=== PATIENT | female | born 1970 | race Caucasian/White ===

== ENCOUNTER → 2017-05-10 | Outpatient (CLI) | payer OTHER ==
[2016-04-27 14:31] VITALS: BP 166/86
--- NOTE | 2017-05-14 10:12 | MG ---
HISTORY: Screening mammogram, previous done over 10 years ago with no comparison available, history of breast reduction, family history of breast cancer Comparison: None available FINDINGS: CC and MLO projections of the right and left breast were obtained as well as exaggerated MLO views. Heterogeneously dense fibroglandular tissue is present. There is a nodular asymmetric density seen at the 1 to 2 o'clock position of the right breast. No significant architectural distortion, mass or cl ustered microcalcifications can be observed to suggest malignancy. No skin thickening or nipple retr action is appreciated. No pathological lymphadenopathy can be identified. There are scattered benig n calcifications present in both breasts. There are bilateral surgical scars noted. IMPRESSION: Asymmetric nodular density seen at the 1 to 2 o'clock position of the right breast. Furt her evaluation with spot compression views and possibly targeted ultrasound is recommended. ACR CATEGORY 0: Assessment incomplete; additional imaging is needed. * 0 (ZERO) - ASSESSMENT INCOMPLETE; ADDITIONAL IMAGING IS NEEDED. * 1/1 (ONE) - NEGATIVE. * 2/II (TWO) - BENIGN FINDINGS. * 3/III (THREE) - PROBABLY BENIGN FINDING; SHORT INTERVAL FOLLOW-UP SUGGESTED. * 4/IV (FOUR) - SUSPICIOUS ABNORMALITY; BIOPSY SHOULD BE CONSIDERED. * 5/V - HIGHLY SUSPICIOUS OF MALIGNANCY; BIOPSY SHOULD BE PERFORMED. A NEGATIVE X-RAY REPORT SHOULD NOT DELAY BIOPSY IF A DOMINANT OR CLINICALLY SUSPICIOUS MASS IS PRESENT; 4 TO 8 PERCENT OF CANCERS ARE NOT IDENTIFIED BY X-RAY. A NEGA TIVE REPORT MAY REINFORCE THE CLINICAL IMPRESSION. ADENOSIS AND DENSE BREASTS MAY OBSCURE AN UNDERLY ING NEOPLASM. Reported By:
== END | disposition home or self-care (01) ==
LOC: RAD 11:32
PROVIDERS: ATTEND Specialist
DX: Z12.31 Encounter for screening mammogram for malignant neoplasm of breast (principal); N63.10 Unspecified lump in the right breast, unspecified quadrant
CPT/HCPCS: 77067

== ENCOUNTER → 2017-05-29 | Outpatient (CLI) | payer OTHER ==
[2016-04-27 14:31] VITALS: BP 166/86
--- NOTE | 2017-05-29 16:23 | US ---
HISTORY: Abnormal baseline screening mammography with right breast focal asymmetry Right breast digital diagnostic mammography with CAD and right breast ultrasound. Comparison: May 10, 2017 FINDINGS: Mammogram: Spot compression and mL views of the right breast were obtained. Heterogeneously dense fi broglandular tissue is seen to be present with persistent focal asymmetry in the upper medial subareo lar breast. A calcified oil cyst is noted more posteriorly. No skin thickening or nipple retraction is appreciated. No pathological lymphadenopathy can be identified. Benign-appearing calcifications are noted. Ultrasound: Multiple grayscale and color Doppler images of the subareolar right breast were obtained. There are dense fibrocystic changes and ductal ectasia noted at 9 o'clock approximately 1 cm from th e nipple. At 6 o'clock approximately 2 cm from the nipple, there is a horizontally oriented macro lob ulated but smoothly marginated and well circumscribed 5 mm hypoechoic nodule with posterior acoustica l enhancement and no internal Doppler flow favored to represent a complex cyst with internal debris. Dense fibrocystic changes are noted throughout. No definite suspicious cystic or solid nodule is seen to correspond to the mammographic findings. IMPRESSION: Probably benign right breast focal asymmetry corresponding to fibrocystic change for whi ch six-month follow-up is recommended to document stability and establish a baseline. ACR CATEGORY 3 - probably benign findings; short interval follow-up suggested. Diagnostic CAD was utilized and reviewed. * 0 (ZERO) - ASSESSMENT INCOMPLETE; ADDITIONAL IMAGING IS NEEDED. * 1/1 (ONE) - NEGATIVE. * 2/II (TWO) - BENIGN FINDINGS. * 3/III (THREE) - PROBABLY BENIGN FINDING; SHORT INTERVAL FOLLOW-UP SUGGESTED. * 4/IV (FOUR) - SUSPICIOUS ABNORMALITY; BIOPSY SHOULD BE CONSIDERED. * 5/V - HIGHLY SUSPICIOUS OF MALIGNANCY; BIOPSY SHOULD BE PERFORMED. A NEGATIVE X-RAY REPORT SHOULD NOT DELAY BIOPSY IF A DOMINANT OR CLINICALLY SUSPICIOUS MASS IS PRESENT; 4 TO 8 PERCENT OF CANCERS ARE NOT IDENTIFIED BY X-RAY. A NEGA TIVE REPORT MAY REINFORCE THE CLINICAL IMPRESSION. ADENOSIS AND DENSE BREASTS MAY OBSCURE AN UNDERLY ING NEOPLASM. Reported By:
== END ==
LOC: RAD 12:58
PROVIDERS: ATTEND Specialist
DX: R92.8 Other abnormal and inconclusive findings on diagnostic imaging of breast (principal)
CPT/HCPCS: 76642; 77065

== ENCOUNTER 2017-10-07 11:10 | Emergency (ER) | payer OTHER ==
[2017-10-07 11:22] VITALS: BP 157/86; BMI 30.4
[2017-10-07] MEDS ORDERED: TORADOL 60 MG VIAL IM ONE (11:53)
[2017-10-07] MEDS ORDERED: ZOFRAN INJ 4 MG VIAL IM ONE (11:53)
--- NOTE | 2017-10-07 11:54 | DR.GENAD ---
HPI - PCP Primary Care Physician: LAM - Complaint/Symptoms Chief Complaint:: PT STATES SHE FELL DOWN 3 STEPS YESTERDAY AND HIT HER HEAD. PT STATES SHE IS IN A LOT OF PAIN TODAY. - Nurses notes reviewed Nurses Notes Review: Yes - Source History Provided: Patient - Mode of Arrival Mode of Arrival: Wheelchair - Timing Onset of Chief Complaint: 10/06/17 PMH - PMH Past Medical History: Yes Past Medical History: Hypertension Past Surgical History: Yes Surgical History: Hysterectomy - Family History History of Family Medical Conditions: No - Social History Does patient currently use any type of tobacco product: No Have you used tobacco products in the last 12 months: No Type of Tobacco Use: None Does any household member use tobacco: No Alcohol Use: None Do you use any recreational Drugs:: No Lives With: Spouse Lives Where: Home - infectious screening In the last 2 months have you had wt loss of >10#?: NO Have you had fever, night sweats or hemotysis?: No Have you traveled outside the country in the last 6 months?: No Isolation: Standard PE - Vital Signs Vitals: Temperature 98.2 F Pulse Rate 86 Respiratory Rate 20 Blood Pressure [Right Arm] 166/86 Blood Pressure 157/86 O2 Sat by Pulse Oximetry 99 ROR - Labs Reviewed Result Diagrams: 10/07/17 13:12 10/07/17 13:12 Laboratory: WBC 11.0 X10^3/uL (3.6-10.0) H 10/07/17 13:12 RBC 4.29 X10^6/uL (3.5-5.4) 10/07/17 13:12 Hgb 13.0 g/dL (12.0-16.0) 10/07/17 13:12 Hct 38.2 % (36.0-47.0) 10/07/17 13:12 MCV 89.0 fL (80.0-100.0) 10/07/17 13:12 MCH 30.3 pg (27.0-34.0) 10/07/17 13:12 MCHC 34.0 g/dL (33.0-35.0) 10/07/17 13:12 RDW 14.4 % (11.6-16.5) 10/07/17 13:12 Plt Count 461 X10^3/uL (150.0-450.0) H 10/07/17 13:12 MPV 7.0 fL (7.4-11.0) L 10/07/17 13:12 Neut % (Auto) 75.6 % (42.0-75.0) H 10/07/17 13:12 Lymph % (Auto) 16.5 % (21.0-51.0) L 10/07/17 13:12 [place] % (Auto) 7.4 % (0.0-13.0) 10/07/17 13:12 Eos % (Auto) 0.2 % (0.9-2.9) L 10/07/17 13:12 Baso % (Auto) 0.3 % (0.2-1.0) 10/07/17 13:12 Neut # (Auto) 8.3 x10^3/uL (2.2-4.8) H 10/07/17 13:12 Lymph # (Auto) 1.8 X10^3/uL (1.3-2.9) 10/07/17 13:12 [place] # (Auto) 0.8 x10^3/uL (0.3-0.8) 10/07/17 13:12 Eos # (Auto) 0.0 x10^3/uL (0.0-0.2) 10/07/17 13:12 Baso # (Auto) 0.0 X10^3/uL (0.0-0.1) 10/07/17 13:12 Absolute Nucleated RBC 0.0 /100WBC 10/07/17 13:12 Sodium 142 mmol/L (136-145) 10/07/17 13:12 Corrected Sodium 143 mmol/L (136-145) 10/07/17 13:12 Potassium 4.6 mmol/L (3.5-5.1) 10/07/17 13:12 Chloride 104 mmol/L (98-107) 10/07/17 13:12 Carbon Dioxide 28.6 mmol/L (21-32) 10/07/17 13:12 BUN 27 mg/dL (7-18) H 10/07/17 13:12 Creatinine 1.35 mg/dL (0.55-1.02) H 10/07/17 13:12 Est GFR (MDRD) Af Amer 54 (>60) L 10/07/17 13:12 Est GFR (MDRD) Non-Af 44 (>60) L 10/07/17 13:12 Glucose 134 mg/dL (65-99) H 10/07/17 13:12 Calcium 8.8 mg/dL (8.5-10.1) 10/07/17 13:12 Corrected Calcium TNP 10/07/17 13:12 Total Bilirubin 0.20 mg/dL (0.2-1.0) 10/07/17 13:12 AST 17 Units/L (15-37) 10/07/17 13:12 ALT 28 Units/L (12-78) 10/07/17 13:12 Alkaline Phosphatase 97 Units/L (46-116) 10/07/17 13:12 Total Protein 7.9 g/dL (6.4-8.2) 10/07/17 13:12 Albumin 4.1 g/dL (3.4-5.0) 10/07/17 13:12 Globulin 3.8 g/dL (2.5-4.5) 10/07/17 13:12 Albumin/Globulin Ratio 1.1 Ratio (1.1-2.1) 10/07/17 13:12 - Diagnosis Discharge Problem: Back pain Qualifiers: Back pain location: low back pain Chronicity: acute Back pain laterality: bilateral Sciatica presence: without sciatica Qualified Code(s): M54.5 - Low back pain Cervical sprain Qualifiers: Encounter type: initial encounter Qualified Code(s): S13.9XXA - Sprain of joints and ligaments of unspecified parts of neck, initial encounter Back strain Qualifiers: Encounter type: initial encounter Qualified Code(s): S39.012A - Strain of muscle, fascia and tendon of lower back, initial encounter Headache Qualifiers: Headache type: unspecified Headache chronicity pattern: acute headache Intractability: intractable Qualified Code(s): R51 - Headache - Discharge Plan Condition: Stable Prescriptions: Ibuprofen [MOTRIN TAB 800 MG *] 800 mg PO Q8H PRN #20 tab PRN Reason: Pain/Inflammation Ondansetron [Zofran ODT 8 mg] 8 mg PO Q8H PRN #12 tab PRN Reason: Nausea/Vomiting - Follow ups/Referrals Follow ups/Referrals: Maximo Lorenz [Primary Care Provider] - 03/19/18 - Instructions Instructions: Lumbosacral Strain, Mid-Back Strain, Cervical Strain and Sprain Rehab-SportsMed Additional Instructions: RETURN TO ED IF WORSE.
[2017-10-07] MEDS ORDERED: ZOFRAN INJ 4 MG VIAL ONE (11:59)
[2017-10-07] MEDS ORDERED: TORADOL 60 MG VIAL ONE (11:59)
--- NOTE | 2017-10-07 13:03 | RAD ---
Examination: Right knee, three views History: Fell Findings: No definite fracture, dislocation or synovial effusion. There is slight narrowing of the me dial compartment. Impression: Medial compartment degenerative change. No acute injury identified. Reported By:
--- NOTE | 2017-10-07 13:03 | CT ---
CT brain without contrast Indication: Fall with head trauma Comparison: None available Technique: Multiple axial images of the brain were obtained from the skull base to the vertex without administra tion of IV contrast. Findings: No acute intraparenchymal hemorrhage or mass can be identified. No extra-axial fluid collections are seen. No alteration in the attenuation of the brain parenchyma can be identified to suggest acute o r subacute ischemic change. The ventricular system is symmetric and nondilated. The extracranial st ructures are grossly unremarkable. IMPRESSION: 1. No acute intracranial process is identified. Reported By:
--- NOTE | 2017-10-07 13:04 | RAD ---
Examination: Thoracic spine, AP and lateral views History: Fell Findings: There is no evidence for thoracic spine fracture or dislocation. Slight disc narrowing and small marginal osteophytes at several levels. The paraspinal soft tissues are normal. Impression: Mild thoracic spondylosis. No fracture demonstrated. Reported By:
--- NOTE | 2017-10-07 13:06 | RAD ---
Examination: Cervical spine History: Recent fall Findings: Normal alignment of C1-C6. The inferior portion of C6, C7 and T1 are not demonstrated on la teral views. There is degenerative change at C5-6-7. No obvious fracture or vertebral displacement. T he odontoid process is intact. Degenerative osteophytes impinge slightly on lower neural foramina alka aterally. Impression: Degenerative disc disease, spondylosis and lower cervical uncovertebral joint osteoarthri tis. There is mild degenerative narrowing of lower neural foramina. The cervicothoracic junction is n ot evaluated on available lateral images. Reported By:
--- NOTE | 2017-10-07 13:15 | RAD ---
Five views of the lumbar spine. Indication: Back pain after fall Findings: No acute fracture within the lumbar spine. There is multilevel spondylosis throughout the l umbar spine with a minimal anterolisthesis of L4. There is moderate facet arthropathy at L4-5 and L5- S1. No spondylolysis identified. Calcified atherosclerotic disease of the abdominal aorta is noted. S I joints are intact. Impression: 1.Multilevel spondylosis with a minimal anterolisthesis of L4 secondary to moderate L4-5 and L5-S1 fa cet arthropathy. No acute fracture. 2. Moderate calcified atheromatous disease of the abdominal aorta. Reported By:
[2017-10-07 13:20] LABS: BASOPHILS % (AUTO) 0.3 % (0.2-1.0); EOSINOPHILS % (AUTO) 0.2 % (0.9-2.9); HEMATOCRIT 38.2 % (36.0-47.0); LYMPHOCYTES # (AUTO) 1.8 X10^3/uL (1.3-2.9); LYMPHOCYTES % (AUTO) 16.5 % (21.0-51.0); MEAN CORPUSCULAR HEMOGLOBIN 30.3 pg (27.0-34.0); MONOCYTES # (AUTO) 0.8 x10^3/uL (0.3-0.8); MONOCYTES % (AUTO) 7.4 % (0.0-13.0); NEUTROPHILS # (AUTO) 8.3 x10^3/uL (2.2-4.8); NEUTROPHILS % (AUTO) 75.6 % (42.0-75.0); PLATELET COUNT 461 X10^3/uL (150.0-450.0); RED BLOOD COUNT 4.29 X10^6/uL (3.5-5.4); RED CELL DISTRIBUTION WIDTH 14.4 % (11.6-16.5)
[2017-10-07 13:29] LABS: ALANINE AMINOTRANSFERASE 28 Units/L (12-78); ALBUMIN 4.1 g/dL (3.4-5.0); ALKALINE PHOSPHATASE 97 Units/L (46-116); ASPARTATE AMINO TRANSFERASE 17 Units/L (15-37); BLOOD UREA NITROGEN 27 mg/dL (7-18); CALCIUM 8.8 mg/dL (8.5-10.1); CARBON DIOXIDE 28.6 mmol/L (21-32); CHLORIDE 104 mmol/L (98-107); COR NA(FOR HYPERGLY) 143 mmol/L (136-145); CREATININE 1.35 mg/dL (0.55-1.02); SODIUM 142 mmol/L (136-145); TOTAL PROTEIN 7.9 g/dL (6.4-8.2); eGFR BLACK RACES 54 (>60); eGFR NON BLACK RACES 44 (>60)
[2017-10-07] MEDS ORDERED: PHENERGAN INJ 25 MG ONE (13:37)
[2017-10-07] MEDS ORDERED: BACITRACIN ZINC ONE (13:59)
== END 2017-10-07 15:15 | disposition home or self-care (01) ==
LOC: ER 11:14
DX: S39.012S Strain of muscle, fascia and tendon of lower back, sequela (principal); S13.9XXA Sprain of joints and ligaments of unspecified parts of neck, initial encounter; M54.5 Low back pain; R51 Headache; W10.9XXA Fall (on) (from) unspecified stairs and steps, initial encounter; Y92.9 Unspecified place or not applicable
CPT/HCPCS: 36415; 70450; 72050; 72072; 72110; 73564; 80053; 85025; 96372; 99282; 99283; J1885; J2405; J2550

== ENCOUNTER 2018-01-17 18:55 | Inpatient (IN) ==
[2018-01-17] MEDS ORDERED: NS 1000 ML 1,000 ML ONE ×4 (20:14→23:31)
--- NOTE | 2018-01-17 20:15 | DR.GENAD ---
HPI - PCP Primary Care Physician: LAM - HPI Comment HPI Comment: FELL, SYNCOPAL EPISODE YESTERDAY. TONIGHT TOOK 1/2 THE DOSE OF BP MED AND WAS ABOUT TO EAT WHEN NOTICE AMS. SHE WAS PALE AND BP WAS LOW. STILL BP LOW IN ED. - Complaint/Symptoms Chief Complaint Doctors Comments: HYPOTENSION, DIZZINESS, NEAR SYNCOPAL EPISODE. Chief Complaint:: TOOK BP MEDS PRIOR TO SUPPER. SAT DOWN EATING SUPPER AND BECAME INCOHERENT PER . BP WAS LOW 70/50 THE NEXT TIME BP WOULD NOT REGISTER ON MACHINE. SYNCOPE EPISODE YESTERDAY, HURTING ALL OVER FROM THE FALL. LOW BLOOD PRESSURE. Self Treatment fo Chief Complaint: LISINOPRIL 10MG WITH HCTZ 12.5MG AM AND LISINOPRIL 10MG PO AT HS. OF TODAY- ALL CUT IN HALF - Nurses notes reviewed Nurses Notes Review: Yes - Source History Provided: Patient, [employer] - Mode of Arrival Mode of Arrival: Ambulatory - Timing Onset of Chief Complaint: 01/17/18 Came on: Suddenly - Duration Duration: Minutes - Severity Severity: Moderate PMH - PMH Past Medical History: Yes Past Medical History: Hypertension Past Surgical History: Yes Surgical History: Hysterectomy - Family History History of Family Medical Conditions: No - Social History Does patient currently use any type of tobacco product: No Have you used tobacco products in the last 12 months: No Type of Tobacco Use: None Alcohol Use: None Do you use any recreational Drugs:: No Lives With: Spouse Lives Where: Home - infectious screening Have you traveled outside the country in the last 6 months?: No Isolation: Standard ROS - Review of Systems Constitutional: Weakness, Fatigue. negative: Chills, Fever Eyes: No Symptoms Reported. negative: Eye Pain, Discharge ENTM: negative: Ear Pain, Nose Discharge, Nose Congestion, Throat Pain Respiratoy: Short of Breath. negative: Productive Cough, Non-Productive Cough, Wheezing, Hemoptysis Cardiovascular: Syncope Gastrointestinal/Abdominal: No Symptoms Reported Genitourinary: No Symptoms Reported Neurological: No Symptoms Reported Musculoskeletal: No Symptoms Reported Integumentary: No Symptoms Reported Hematologic/Lymphatic: No Symptoms Reported Endocrine: No Symptoms Reported All Other Systems: Reviewed and Negative PE - General Limitations: No Limitations General Appearance: Alert - Head Head Exam: Normal Inspection - Eyes Eye exam: Normal Appearance - ENT ENT Exam: Normal External Ear Exam External Ear Exam: Normal External Inspection TM/Canal Exam: Bilateral Normal Nose Exam: Normal Nose Exam Mouth Exam: Normal Inspection Throat Exam: Normal Inspection - Neck Neck Exam: Trachea Midline - Chest Chest Inspection: Symmetric Chest Wall Rise - Respiratory Respiratory Exam: Normal Lung Sounds Bilat Respiratory Exam: Bilateral Clear to Auscultation - Cardiovascular Cardiovascular Exam: Regular Rate, Normal Rhythm, Normal Heart Sounds - Abdominal Exam Abdominal Exam: Normal Bowel Sounds, Soft. negative: Tenderness - Extremities Extremities Exam: Normal Inspection - Back Back Exam: Normal Inspection - Neurologic Neurological Exam: Alert, Oriented X3. negative: CN II-XII Intact - Psychiatric Psychiatric Exam: Normal Affect, Normal Mood - Skin Skin Exam: Normal Color - Vital Signs Vitals: Temperature 97.6 F Pulse Rate [Apical] 67 Pulse Rate 86 Respiratory Rate 14 Blood Pressure [Left Arm] 67/44 Blood Pressure [Right Arm] 166/86 Blood Pressure 80/42 O2 Sat by Pulse Oximetry 98 MDM - Additional Information Additional Information Obtained From: Family Findings: HYPOTENSION, AMS, UTI, [place], SEPSIS Course - Treatment Treatment: SEE ORDER. - Consultation Consultation Comments: DISCUSS PATIENT WITH DR. WELLS, HE WILL ADMIT PATIENT. - Education/Counseling Education/Counseling: Patient, Family, Education Educated On: Diagnosis, Needs for Follow Up ROR - Labs Reviewed Result Diagrams: 01/19/18 05:16 01/19/18 05:16 - Labs Reviewed Laboratory: WBC 10.4 X10^3/uL (3.6-10.0) H 01/17/18 20: RBC 3.98 X10^6/uL (3.5-5.4) 01/17/18 20:29 Hgb 12.2 g/dL (12.0-16.0) 01/17/18 20: Hct 36.3 % (36.0-47.0) 01/17/18 20: MCV 91.0 fL (80.0-100.0) 01/17/18 20: MCH 30.7 pg (27.0-34.0) 01/17/18 20: MCHC 33.7 g/dL (33.0-35.0) 01/17/18 20: RDW 13.9 % (11.6-16.5) 01/17/18 20:29 Plt Count 360 X10^3/uL (150.0-450.0) 01/17/18 20: MPV 6.9 fL (7.4-11.0) L 01/17/18 20: Neut % (Auto) 49.4 % (42.0-75.0) 01/17/18 20: Lymph % (Auto) 39.6 % (21.0-51.0) 01/17/18 20: [place] % (Auto) 7.6 % (0.0-13.0) 01/17/18 20: Eos % (Auto) 2.8 % (0.9-2.9) 01/17/18 20: Baso % (Auto) 0.6 % (0.2-1.0) 01/17/18 20: Neut # (Auto) 5.1 x10^3/uL (2.2-4.8) H 01/17/18 20: Lymph # (Auto) 4.1 X10^3/uL (1.3-2.9) H 01/17/18 20:29 [place] # (Auto) 0.8 x10^3/uL (0.3-0.8) 01/17/18 20: Eos # (Auto) 0.3 x10^3/uL (0.0-0.2) H 01/17/18 20: Baso # (Auto) 0.1 X10^3/uL (0.0-0.1) 01/17/18 20: Absolute Nucleated RBC 0.0 /100WBC 01/17/18 20: INR Target Range - 01/17/18 20: INR 1.02 (0.8-1.3) 01/17/18 20:29 APTT 28.1 SECONDS (22.9-36.5) 01/17/18 20: PTT Comment - 01/17/18 20:29 Sodium 137 mmol/L (136-145) 01/17/18 20: Corrected Sodium 138 mmol/L (136-145) 01/17/18 20:29 Potassium 4.6 mmol/L (3.5-5.1) 01/17/18 20: Chloride 102 mmol/L (98-107) 01/17/18 20:29 Carbon Dioxide 22.6 mmol/L (21-32) 01/17/18 20:29 BUN 31 mg/dL (7-18) H 01/17/18 20:29 Creatinine 2.15 mg/dL (0.55-1.02) H 01/17/18 20:29 Est GFR (MDRD) Af Amer 31 (>60) L 01/17/18 20:29 Est GFR (MDRD) Non-Af 26 (>60) L 01/17/18 20:29 Glucose 160 mg/dL (65-99) H 01/17/18 20:29 Lactic Acid 2.4 mmol/L (0.4-2.0) H 01/17/18 20:29 Calcium 8.8 mg/dL (8.5-10.1) 01/17/18 20: Corrected Calcium TNP 01/17/18 20: Magnesium 1.8 mg/dL (1.7-2.9) 01/17/18 20: Total Bilirubin 0.30 mg/dL (0.2-1.0) 01/17/18 20:29 AST 10 Units/L (15-37) L 01/17/18 20:29 ALT 21 Units/L (12-78) 01/17/18 20:29 Alkaline Phosphatase 54 Units/L (46-116) 01/17/18 20:29 Creatine Kinase 32 Units/L (26-192) 01/17/18 20:29 CK-MB (CK-2) < 1.0 ng/mL (0-4.0) 01/17/18 20: CK/CKMB % Calc 3.1 % (<4) 01/17/18 20:29 Troponin I < 0.02 ng/mL (0-1.5) 01/17/18 20:29 Total Protein 6.6 g/dL (6.4-8.2) 01/17/18 20: Albumin 3.7 g/dL (3.4-5.0) 01/17/18 20: Globulin 2.9 g/dL (2.5-4.5) 01/17/18 20:29 Albumin/Globulin Ratio 1.3 Ratio (1.1-2.1) 01/17/18 20:29 - Diagnosis Discharge Problem: Dehydration Hypotension Qualifiers: Hypotension type: unspecified hypotension type Qualified Code(s): I95.9 - Hypotension, unspecified Altered mental status Qualifiers: Altered mental status type: transient alteration of awareness Qualified Code(s) : R40.4 - Transient alteration of awareness Syncopal episodes Qualifiers: Syncope type: unspecified Qualified Code(s): R55 - Syncope and collapse - Discharge Plan Disposition: 09 ADMITTED INPATIENT Condition: Stable
[2018-01-17] MEDS ORDERED: NS 1000 ML 1,000 ML IV ONE ×3 (20:16→23:00)
[2018-01-17 20:43] LABS: BASOPHILS # (AUTO) 0.1 X10^3/uL (0.0-0.1); BASOPHILS % (AUTO) 0.6 % (0.2-1.0); EOSINOPHILS # (AUTO) 0.3 x10^3/uL (0.0-0.2); EOSINOPHILS % (AUTO) 2.8 % (0.9-2.9); HEMATOCRIT 36.3 % (36.0-47.0); HEMOGLOBIN 12.2 g/dL (12.0-16.0); LYMPHOCYTES # (AUTO) 4.1 X10^3/uL (1.3-2.9); LYMPHOCYTES % (AUTO) 39.6 % (21.0-51.0); MEAN CORPUSCULAR HEMOGLOBIN 30.7 pg (27.0-34.0); MEAN CORPUSCULAR HGB CONC 33.7 g/dL (33.0-35.0); MEAN PLATELET VOLUME 6.9 fL (7.4-11.0); MONOCYTES # (AUTO) 0.8 x10^3/uL (0.3-0.8); MONOCYTES % (AUTO) 7.6 % (0.0-13.0); NEUTROPHILS # (AUTO) 5.1 x10^3/uL (2.2-4.8); NEUTROPHILS % (AUTO) 49.4 % (42.0-75.0); PLATELET COUNT 360 X10^3/uL (150.0-450.0); RED BLOOD COUNT 3.98 X10^6/uL (3.5-5.4); RED CELL DISTRIBUTION WIDTH 13.9 % (11.6-16.5); WHITE BLOOD COUNT 10.4 X10^3/uL (3.6-10.0)
[2018-01-17 20:53] LABS: LACTIC ACID 2.4 mmol/L (0.4-2.0)
[2018-01-17 20:55] LABS: BLOOD UREA NITROGEN 31 mg/dL (7-18); CALCIUM 8.8 mg/dL (8.5-10.1); CARBON DIOXIDE 22.6 mmol/L (21-32); CHLORIDE 102 mmol/L (98-107); COR NA(FOR HYPERGLY) 138 mmol/L (136-145); CREATININE 2.15 mg/dL (0.55-1.02); SODIUM 137 mmol/L (136-145); TROPONIN I < 0.02 ng/mL (0-1.5); eGFR NON BLACK RACES 26 (>60)
--- NOTE | 2018-01-17 20:58 | CT ---
CT head without contrast Indication: Hypotension, altered mental status Comparison: 10/07/2017 Technique: CT images of the head were obtained without contrast. Automatic exposure control was utili BFKW. Findings: The ventricles are symmetric and nondilated. No acute bleed, mass effect, or abnormal extra -axial collection. No acute skeletal abnormality. The visualized paranasal sinuses and mastoid air ce lls are clear. Impression: No acute intracranial abnormality. Reported By:
--- NOTE | 2018-01-17 20:59 | RAD ---
STUDY: CHEST, ONE VIEW History: Low blood pressure. Comparison: None. Findings: The trachea is midline. The lungs are clear of consolidation, significant infiltrate, effusion, or pn eumothorax. The cardiac silhouette, mediastinum and osseous structures are unremarkable. IMPRESSION: 1. No evidence of acute cardiopulmonary abnormality. Reported By:
[2018-01-17 21:18] LABS: ALANINE AMINOTRANSFERASE 21 Units/L (12-78); ALBUMIN 3.7 g/dL (3.4-5.0); ALKALINE PHOSPHATASE 54 Units/L (46-116); ASPARTATE AMINO TRANSFERASE 10 Units/L (15-37); CKMB % 3.1 % (<4); CREATINE KINASE 32 Units/L (26-192); CREATINE KINASE MB < 1.0 ng/mL (0-4.0); MAGNESIUM 1.8 mg/dL (1.7-2.9); TOTAL PROTEIN 6.6 g/dL (6.4-8.2)
[2018-01-17] MEDS ORDERED: DOPAMINE IV PREMIX 400 MG/250 ML 400 MG/250 ML BAG IV ONE ×2 (21:57→22:06)
[2018-01-17] MEDS ORDERED: MAXIPIME VIAL 1 GRAM 1 G in NS 50 ML IV 50 ML IV ONE (22:01)
[2018-01-17 22:36] LABS: SERUM ACETONE NEGATIVE (NEGATIVE)
[2018-01-17 22:39] LABS: LACTIC ACID 1.5 mmol/L (0.4-2.0)
[2018-01-17] MEDS ORDERED: NS 100 ML IV + SPIKE MINIBAG* 100 ML IV ONE (23:31)
[2018-01-17 23:43] LABS: BILIRUBIN,URINE NEGATIVE (NEGATIVE); BLOOD/HEMOGLOBIN,URINE NEGATIVE (NEGATIVE); GLUCOSE, URINE NEGATIVE (NEGATIVE); KETONES,URINE NEGATIVE (NEGATIVE); LEUKOCYTE ESTERASE ,URINE NEGATIVE (NEGATIVE); NITRITES,URINE NEGATIVE (NEGATIVE); PROTEIN,URINE NEGATIVE (NEGATIVE); UROBILINOGEN,URINE NORMAL (NORMAL)
[2018-01-17] MEDS: NS 1000 ML 1,000 ML IV SCH (23:45)
[2018-01-17 23:53] LABS: APPEARANCE,URINE CLEAR (CLEAR); COLOR,URINE YELLOW (YELLOW)
[2018-01-18 00:44] VITALS: BMI 38.9
[2018-01-18] MEDS ORDERED: ZOFRAN TAB 4 MG SL PRN (00:59)
[2018-01-18] MEDS: ULTRAM PO PRN ×2 (01:11→10:04)
[2018-01-18] MEDS: NORCO 5/325 MG TAB PO PRN ×2 (05:05→20:09)
[2018-01-18 06:30] LABS: BASOPHILS # (AUTO) 0.1 X10^3/uL (0.0-0.1); BASOPHILS % (AUTO) 0.6 % (0.2-1.0); EOSINOPHILS # (AUTO) 0.3 x10^3/uL (0.0-0.2); EOSINOPHILS % (AUTO) 2.8 % (0.9-2.9); HEMATOCRIT 33.9 % (36.0-47.0); HEMOGLOBIN 11.4 g/dL (12.0-16.0); LYMPHOCYTES # (AUTO) 3.4 X10^3/uL (1.3-2.9); MEAN CORPUSCULAR HEMOGLOBIN 30.3 pg (27.0-34.0); MEAN CORPUSCULAR HGB CONC 33.5 g/dL (33.0-35.0); MEAN CORPUSCULAR VOLUME 90.3 fL (80.0-100.0); MEAN PLATELET VOLUME 6.6 fL (7.4-11.0); MONOCYTES # (AUTO) 1.3 x10^3/uL (0.3-0.8); MONOCYTES % (AUTO) 10.5 % (0.0-13.0); NEUTROPHILS # (AUTO) 7.1 x10^3/uL (2.2-4.8); NEUTROPHILS % (AUTO) 58.1 % (42.0-75.0); PLATELET COUNT 359 X10^3/uL (150.0-450.0); RED BLOOD COUNT 3.76 X10^6/uL (3.5-5.4); RED CELL DISTRIBUTION WIDTH 13.7 % (11.6-16.5); WHITE BLOOD COUNT 12.3 X10^3/uL (3.6-10.0)
[2018-01-18 07:00] LABS: ALBUMIN 3.2 g/dL (3.4-5.0); CALCIUM 7.9 mg/dL (8.5-10.1); CARBON DIOXIDE 22.5 mmol/L (21-32); COR CA(FOR HYPOALB) 8.5 mg/dL (8.5-10.1); CREATININE 1.66 mg/dL (0.55-1.02); MAGNESIUM 1.7 mg/dL (1.7-2.9); TOTAL PROTEIN 5.9 g/dL (6.4-8.2)
[2018-01-18 07:24] LABS: CREATINE KINASE 33 Units/L (26-192); CREATINE KINASE MB < 1.0 ng/mL (0-4.0); TROPONIN I < 0.02 ng/mL (0-1.5)
[2018-01-18] MEDS: NS 1000 ML 1,000 ML IV SCH ×3 (07:50→18:11)
[2018-01-18] MEDS ORDERED: MAXIPIME VIAL 1 GRAM IV SCH (09:00)
[2018-01-18 12:00] LABS: CREATINE KINASE 35 Units/L (26-192); CREATINE KINASE MB < 1.0 ng/mL (0-4.0); TROPONIN I < 0.02 ng/mL (0-1.5)
[2018-01-18 12:10] LABS: CKMB % 2.9 % (<4)
--- NOTE | 2018-01-18 12:50 | US ---
History: Hypotension and dehydration Study: Ultrasound of the kidneys Comparison: None Findings: The right kidney measures 10.05 x 6.85 by 6.46 cm with cortical thickness of 1.72 cm. The l eft kidney measures 10.79 x 6.28 x 8.07 cm with cortical thickness of 1.83 cm. There is normal renal echogenicity. There is no mass or hydronephrosis. There is no free fluid. The u rinary bladder is decompressed by a catheter. Impression: Negative Reported By:
[2018-01-18] MEDS ORDERED: MAXIPIME IV SCH (21:00)
[2018-01-19 06:03] LABS: BASOPHILS # (AUTO) 0.1 X10^3/uL (0.0-0.1); BASOPHILS % (AUTO) 0.7 % (0.2-1.0); EOSINOPHILS # (AUTO) 0.3 x10^3/uL (0.0-0.2); HEMATOCRIT 34.7 % (36.0-47.0); HEMOGLOBIN 11.6 g/dL (12.0-16.0); LYMPHOCYTES # (AUTO) 3.3 X10^3/uL (1.3-2.9); LYMPHOCYTES % (AUTO) 41.4 % (21.0-51.0); MEAN CORPUSCULAR HEMOGLOBIN 30.2 pg (27.0-34.0); MEAN CORPUSCULAR HGB CONC 33.5 g/dL (33.0-35.0); MEAN CORPUSCULAR VOLUME 90.3 fL (80.0-100.0); MEAN PLATELET VOLUME 6.7 fL (7.4-11.0); MONOCYTES # (AUTO) 0.8 x10^3/uL (0.3-0.8); MONOCYTES % (AUTO) 9.6 % (0.0-13.0); NEUTROPHILS # (AUTO) 3.5 x10^3/uL (2.2-4.8); NEUTROPHILS % (AUTO) 44.3 % (42.0-75.0); PLATELET COUNT 351 X10^3/uL (150.0-450.0); RED BLOOD COUNT 3.84 X10^6/uL (3.5-5.4); RED CELL DISTRIBUTION WIDTH 13.6 % (11.6-16.5); WHITE BLOOD COUNT 7.9 X10^3/uL (3.6-10.0)
[2018-01-19 06:21] LABS: ALBUMIN 2.9 g/dL (3.4-5.0); ALKALINE PHOSPHATASE 50 Units/L (46-116); ASPARTATE AMINO TRANSFERASE 10 Units/L (15-37); BLOOD UREA NITROGEN 21 mg/dL (7-18); CALCIUM 8.4 mg/dL (8.5-10.1); CARBON DIOXIDE 23.6 mmol/L (21-32); CHLORIDE 112 mmol/L (98-107); COR CA(FOR HYPOALB) 9.3 mg/dL (8.5-10.1); CREATININE 1.07 mg/dL (0.55-1.02); SODIUM 144 mmol/L (136-145); TOTAL PROTEIN 5.9 g/dL (6.4-8.2); eGFR NON BLACK RACES 58 (>60)
[2018-01-19 07:02] LABS: ALANINE AMINOTRANSFERASE 18 Units/L (12-78)
[2018-01-19 08:02] VITALS: BP 161/75
[2018-01-19] MEDS: NS 1000 ML 1,000 ML IV SCH (08:24)
[2018-01-19] MEDS ORDERED: ZANAFLEX PO SCH (09:00)
[2018-01-19] MEDS ORDERED: HYDROCHLOROTHIAZIDE 25 MG TAB PO SCH (09:00)
[2018-01-19] MEDS ORDERED: PriLOSEC PO SCH (09:00)
[2018-01-19] MEDS ORDERED: SINGULAIR TAB 10 MG PO SCH (09:00)
[2018-01-19] MEDS ORDERED: ASPIRIN PO SCH (09:00)
[2018-01-19] MEDS ORDERED: ZESTRIL TAB 10 MG PO SCH (09:00)
[2018-01-19] MEDS ORDERED: SYNTHROID 25 mcg TAB PO SCH (21:00)
[2018-01-19] MEDS ORDERED: CYMBALTA PO SCH (21:00)
--- NOTE | 2018-01-20 12:01 | DR.H&P ---
H&P - History & Physical for Day of: H&P Date: 01/17/18 - Chief Complaint Chief Complaint: hypotension - History of Present Illness History of Present Illness: is a 47 year old patient of ours who presented to the emergency room with reports of low blood pressure. Patients reports patient took blood pressure medications prior to having supper, sat down to eat and became incoherent. Patients then checked blood pressure and it was noted at 70/50, when rechecked wouldnt register on machine. Patients reported that patient had a syncopal episode at home yesterday. On arrival to the hospital, vitals were 97.6, 86, 16, 97% RA, 80/42. It then fell to 63/46. Labs were obtained. Abnormal Labs: WBC 10.4, MPV 6.9, BUN 31, Creatinine 2.15, GFR af 31, GFR non 26, Glucose 160, Lactic Acid 2.4, AST 10. Blood Cultures x2 Pending. EKG: Sinus Rhythm. Rate=81. Chest X-Ray: No evidence of acute cardiopulmonary abnormality. Brain CT: No acute intracranial abnormality. Patient given three 1liter normal saline boluses without increase in blood pressure and subsequently started on Dopamine drip at 5mcg/kg/min, titrate per protocol. Patient admitted to ICU and placed on continuous laboratory monitor and NIBP. Will follow up with labs in the morning. - Past Medical History Past Medical History: Hypertension - Past Surgical History Surgical History: Hysterectomy - Family History Family Medical History: Diabetes Mellitus, Heart Failure, Hypertension - Social History Does patient currently use any type of tobacco product: No Have you used tobacco products in the last 12 months: Yes Type of Tobacco Use: Cigarettes Does any household member use tobacco: No Alcohol Use: None Drug Use: None - Medications Home Medications: No Known Drug Allergies Allergy (Verified 01/17/18 20:09) CONTINUE taking the following medications amoxicillin-pot clavulanate 1 tab PO BID 01/18/18 [History] aspirin 1 tab PO DAILY 01/18/18 [History] duloxetine 1 cap PO HS 01/18/18 [History] hydrochlorothiazide 1 tab PO DAILY 01/18/18 [History] hydrocodone-acetaminophen 1 tab PO TID 01/18/18 [History] levothyroxine 1 tab PO HS 01/18/18 [History] lisinopril 1 tab PO BID 01/18/18 [History] meloxicam 1 tab PO DAILY 01/18/18 [History] montelukast 10 mg PO DAILY 01/18/18 [History] omeprazole magnesium [Prilosec OTC] 20 mg PO ONCE 01/18/18 [History] tizanidine 1 cap PO BID 01/18/18 [History] tizanidine 1 tab PO BID 01/18/18 [History] - Review of Systems Constitutional: No Symptoms Reported, Weakness Eyes: No Symptoms Reported ENT: No Symptoms Reported Respiratory: No Symptoms Reported Cardiovascular: [place] Gastrointestinal: No Symptoms Reported Genitourinary: No Symptoms Reported Musculoskeletal: No Symptoms Reported Skin: No Symptoms Reported Neurological: Weakness - Physical Exam Vital Signs: Temperature 97.9 F Pulse Rate [Apical] 74 Pulse Rate 86 Respiratory Rate 16 Blood Pressure [Left Arm] 111/55 Blood Pressure [Right Arm] 161/75 Blood Pressure 80/42 O2 Sat by Pulse Oximetry 99 Oriented: Person, Place Eyes: Normal Ear: Normal Nose: Normal Throat: Normal Respiratory: Clear Throughout Cardiovascular: Normal. negative: S3, S4, Murmur : Normal Auscultation: Bowel Sounds: Normal Palpation: Normal Tenderness: Normal Skin: Normal Musculoskeletal: Normal Psychiatric: Normal Mood Description: Calm Affect: Normal Speech Pattern: Clear - Assessment/Plan (1) Hypotension Qualifiers: Hypotension type: unspecified hypotension type Qualified Code(s): I95.9 - Hypotension, unspecified Status: Acute Plan: admit, iv fluids, laboratory monitor, monitor NIBP - Allergies Allergies/Adverse Reactions: Allergies Allergy/AdvReac Type Severity Reaction Status Date / Time No Known Drug Allergies Allergy Verified 01/17/18 20:09
--- NOTE | 2018-02-11 19:17 | DR.CARTERD ---
- Discharge Summary for: Discharge Summary for Date of:: 01/19/18 - Admission Date Date of Admission: 01/17/18 - Admission Diagnoses Admission Diagnosis: 1. Hypotension 2. Lethargy 3. Dehydration - Discharge Date Discharge Date: 01/19/18 - Discharge Diagnoses Discharge Diagnosis: 1. Hypotension 2. Lethargy 3. Dehydration - Hospital Course Hospital Course: Day one, Ms. Ly presented to the emergency room with reports of low blood pressure. Patients reported patient took blood pressure medications prior to having supper, sat down to eat, and became incoherent. Patients then checked blood pressure and it was noted at 70/50, when rechecked it wouldnt register on machine. On arrival to the hospital patient noted with a blood pressure of 80/42 and then dropped to 60s over 40s. Patient given three 1-liter normal saline boluses without increase in blood pressure and subsequently started on Dopamine drip at 5mcg/kg/min. Patient admitted to ICU and placed on continuous baker helper and NIBP. Medical History: Hypertension, Pneumonia, IBS, UTIs, Hysterectomy, Depression. Medications: Maxipime 1gm IV x1, NS 1liter bolus x3, Dopamine Drip titrate per protocol, NS @ 100ml/hr. Abnormal Labs: WBC 10.4, MPV 6.9, BUN 31, Creatinine 2.15, Glucose 160, Lactic Acid 2.4, AST 10. Blood Cultures x2 obtained. Brain CT: No acute intracranial abnormality. Chest X-Ray: No evidence of acute cardiopulmonary abnormality. EKG: Sinus Rhythm, rate=81. Day two, patient reported nausea. Blood pressure was 130/67 and Dopamine drip was weaned. We obtained a renal ultrasound, which was negative for acute abnormality. We started Zofran IV for nausea and monitored. Day three, patient reported that she felt better. She had no complaints. Blood pressure was 161/75. Renal function greatly improved with IV fluids. We planned for discharge. Instructions for medications and follow up were discussed with patient and family, both voiced understanding. Patient discharged home in stable condition with family. - Discharge Medications Discharge Medications: Home Medication List amoxicillin-pot clavulanate 1 tab PO BID 01/18/18 [History] aspirin 1 tab PO DAILY 01/18/18 [History] duloxetine 1 cap PO HS 01/18/18 [History] hydrochlorothiazide 1 tab PO DAILY 01/18/18 [History] hydrocodone-acetaminophen 1 tab PO TID 01/18/18 [History] levothyroxine 1 tab PO HS 01/18/18 [History] lisinopril 1 tab PO BID 01/18/18 [History] meloxicam 1 tab PO DAILY 01/18/18 [History] montelukast 10 mg PO DAILY 01/18/18 [History] omeprazole magnesium [Prilosec OTC] 20 mg PO ONCE 01/18/18 [History] tizanidine 1 cap PO BID 01/18/18 [History] tizanidine 1 tab PO BID 01/18/18 [History] Prescriptions: - Discharge Disposition Discharge Disposition: Patient is to follow up in our office in one week.
--- NOTE | 2018-02-22 10:42 | PCM.PROG ---
Progress Note - Progress Note for Day of Date of Exam: 01/18/18 - Subjective Subjective: WAS ADMITTED FOR HYPOTENSION AND DEHYDRATION. SHE WAS ADMITTED ON A DOPAMINE DRIP. TODAY, SHE IS ALERT AND ORIENTED, LYING IN BED ON MORNING ROUNDS. SHE REPORTS SLIGHT IMPROVEMENT IN SYMPTOMS OF WEAKNESS AND DIZZINESS. SHE IS CURRENTLY OFF OF THE DOPAMINE DRIP AND VITALS ARE STABLE AT THIS TIME. HER BLOOD PRESSURE IS 130/67. LABS WERE OBTAINED THIS MORNING. ABNORMAL LAB VALUES INCLUDE THE FOLLOWING: WBC 12.3, HGB 11.4, HCT 33.9, CHLORIDE 109, BUN 27, CREATININE 1.66, GLUCOSE 116, CALCIUM 7.9, AST 9, TOTAL PROTEIN 5.9, ALBUMIN 3.2. TODAY, WE PLAN TO OBTAIN A RENAL ULTRASOUND. OTHERWISE , WE WILL FOLLOW UP WITH AM LABS AND CONTINUE TO MONITOR HER BLOOD PRESSURE. - Past Medical Family Social History Past Med/Fam/Surg Hx: No changes since H&P Allergies: Allergies No Known Drug Allergies Allergy (Verified 01/17/18 20:09) - Review of Systems ROS: No change since H&P - Vital Signs and I&O's Vital Signs: Temperature 97.9 F Pulse Rate [Apical] 74 Pulse Rate 86 Respiratory Rate 16 Blood Pressure [Left Arm] 111/55 Blood Pressure [Right Arm] 161/75 Blood Pressure 80/42 O2 Sat by Pulse Oximetry 99 - Physical Exam Oriented: Normal Eyes: Normal Ear: Normal Nose: Normal Throat: Normal Respiratory: Normal Cardiovascular: Normal. negative: S3, S4, Murmur : Normal Auscultation: Bowel Sounds: Normal Palpation: Normal Tenderness: Normal Skin: Normal Musculoskeletal: Normal Psychiatric: Normal Mood Description: Calm Affect: Normal Speech Pattern: Clear - Laboratory and Diagnostics Result Diagrams: 01/19/18 05:16 01/19/18 05:16 Labs: 01/17/18 22:14 Blood Blood Culture - Final 01/17/18 22:13 Blood Blood Culture - Final Laboratory WBC 7.9 X10^3/uL (3.6-10.0) 01/19/18 05:16 RBC 3.84 X10^6/uL (3.5-5.4) 01/19/18 05:16 Hgb 11.6 g/dL (12.0-16.0) L 01/19/18 05:16 Hct 34.7 % (36.0-47.0) L 01/19/18 05:16 MCV 90.3 fL (80.0-100.0) 01/19/18 05:16 MCH 30.2 pg (27.0-34.0) 01/19/18 05:16 MCHC 33.5 g/dL (33.0-35.0) 01/19/18 05:16 RDW 13.6 % (11.6-16.5) 01/19/18 05:16 Plt Count 351 X10^3/uL (150.0-450.0) 01/19/18 05:16 MPV 6.7 fL (7.4-11.0) L 01/19/18 05:16 Neut % (Auto) 44.3 % (42.0-75.0) 01/19/18 05:16 Lymph % (Auto) 41.4 % (21.0-51.0) 01/19/18 05:16 [place] % (Auto) 9.6 % (0.0-13.0) 01/19/18 05:16 Eos % (Auto) 4.0 % (0.9-2.9) H 01/19/18 05:16 Baso % (Auto) 0.7 % (0.2-1.0) 01/19/18 05:16 Neut # (Auto) 3.5 x10^3/uL (2.2-4.8) 01/19/18 05:16 Lymph # (Auto) 3.3 X10^3/uL (1.3-2.9) H 01/19/18 05:16 [place] # (Auto) 0.8 x10^3/uL (0.3-0.8) 01/19/18 05:16 Eos # (Auto) 0.3 x10^3/uL (0.0-0.2) H 01/19/18 05:16 Baso # (Auto) 0.1 X10^3/uL (0.0-0.1) 01/19/18 05:16 Absolute Nucleated RBC 0.0 /100WBC 01/19/18 05:16 INR Target Range - 01/17/18 20:29 INR 1.02 (0.8-1.3) 01/17/18 20:29 APTT 28.1 SECONDS (22.9-36.5) 01/17/18 20:29 PTT Comment - 01/17/18 20:29 Sodium 144 mmol/L (136-145) 01/19/18 05:16 Corrected Sodium TNP 01/19/18 05:16 Potassium 4.6 mmol/L (3.5-5.1) 01/19/18 05:16 Chloride 112 mmol/L (98-107) H 01/19/18 05:16 Carbon Dioxide 23.6 mmol/L (21-32) 01/19/18 05:16 BUN 21 mg/dL (7-18) H 01/19/18 05:16 Creatinine 1.07 mg/dL (0.55-1.02) H 01/19/18 05:16 Est GFR (MDRD) Af Amer > 60 (>60) 01/19/18 05:16 Est GFR (MDRD) Non-Af 58 (>60) L 01/19/18 05:16 Glucose 89 mg/dL (65-99) 01/19/18 05:16 Lactic Acid 1.5 mmol/L (0.4-2.0) 01/17/18 22:13 Calcium 8.4 mg/dL (8.5-10.1) L 01/19/18 05:16 Corrected Calcium 9.3 mg/dL (8.5-10.1) 01/19/18 05:16 Magnesium 1.7 mg/dL (1.7-2.9) 01/18/18 06:11 Total Bilirubin 0.10 mg/dL (0.2-1.0) L 01/19/18 05:16 AST 10 Units/L (15-37) L 01/19/18 05:16 ALT 18 Units/L (12-78) 01/19/18 05:16 Alkaline Phosphatase 50 Units/L (46-116) 01/19/18 05:16 Creatine Kinase 35 Units/L (26-192) 01/18/18 11:11 CK-MB (CK-2) < 1.0 ng/mL (0-4.0) 01/18/18 11:11 CK/CKMB % Calc 2.9 % (<4) 01/18/18 11:11 Troponin I < 0.02 ng/mL (0-1.5) 01/18/18 11:11 Total Protein 5.9 g/dL (6.4-8.2) L 01/19/18 05:16 Albumin 2.9 g/dL (3.4-5.0) L 01/19/18 05:16 Globulin 3.0 g/dL (2.5-4.5) 01/19/18 05:16 Albumin/Globulin Ratio 1.0 Ratio (1.1-2.1) L 01/19/18 05:16 Specimen Type Catherized urine 01/17/18 23:01 Urine Color Yellow (YELLOW) 01/17/18 23:01 Urine Appearance Clear (CLEAR) 01/17/18 23:01 Urine pH 6.0 (5.0 - 8.0) 01/17/18 23:01 Ur Specific [place] 1.010 (1.000-1.030) 01/17/18 23:01 Urine Protein Negative (NEGATIVE) 01/17/18 23:01 Urine Glucose (UA) Negative (NEGATIVE) 01/17/18 23:01 Urine Ketones Negative (NEGATIVE) 01/17/18 23:01 Urine Occult Blood Negative (NEGATIVE) 01/17/18 23:01 Urine Nitrite Negative (NEGATIVE) 01/17/18 23:01 Urine Bilirubin Negative (NEGATIVE) 01/17/18 23:01 Urine Urobilinogen Normal (NORMAL) 01/17/18 23:01 Ur Leukocyte Esterase Negative (NEGATIVE) 01/17/18 23:01 Acetone, Semi-Quant Negative (NEGATIVE) 01/17/18 22:13 - Plan (1) Hypotension Status: Acute Qualifiers: Hypotension type: unspecified hypotension type Qualified Code(s): I95.9 - Hypotension, unspecified Plan: admit, iv fluids, granite cutter, monitor NIBP, OBTAIN RENAL US
== END 2018-01-19 09:20 | disposition home or self-care (01) | DRG 315 ==
LOC: ER 19:58 → ICU 23:18
PROVIDERS: ADMIT Internal Medicine; ATTEND Internal Medicine
DX: N39.0 Urinary tract infection, site not specified; R42 Dizziness and giddiness; E86.0 Dehydration; I95.89 Other hypotension; R94.31 Abnormal electrocardiogram [ECG] [EKG]; R55 Syncope and collapse; R40.4 Transient alteration of awareness
CPT/HCPCS: 36415; 51702; 70450; 71010; 71045; 76770; 80053; 81003; 82009; 82550; 82553; 83605; 83735; 84484; 85025; 85610; 85730; 87040; 93005; 93041; 96365; 96367; 96374; 96375; 97161; 99284; 99285; A4222; J0692; J1265; J7030; J7050; S0181

== ENCOUNTER 2019-03-30 22:05 | Observation (INO) ==
[2019-03-30] MEDS ORDERED: ASPIRIN PO ONE (22:23)
--- NOTE | 2019-03-30 22:40 | DR.HTN ---
HPI Time Seen Time Seen by Provider: 03/30/19 22:18 Primary Care Physician Primary Care Physician: LAM Hurtado Chief Complaint Doctors Comments: 48 yo female who presents for confusion and hypertension. She has had significant pain for year with back and hips. Her last known well time was 12:00 today at lunch. She may have possibly taken all her pills in her weekly pill box per . He is not sure. He does not think that she was trying to harm herself but that she was just trying to stop the pain and has been in so much pain that it is confusing her. Chief Complaint:: EPIGASTRIC PAIN SWEATING AND CONFUSED HIGH BLOOD PRESSURE Source History Provided: Patient Mode of Arrival Mode of Arrival: Ambulatory Timing Onset of Chief Complaint: 03/30/19 PMH PMH Past Medical History: Yes Past Medical History: Depression, Dyslipidemia, Hypertension and Hypothyroidism Past Surgical History: Yes Surgical History: Hysterectomy Family History History of Family Medical Conditions: Yes Family Medical History: Diabetes Mellitus, Heart Failure and Hypertension Social History Does patient currently use any type of tobacco product: No Have you used tobacco products in the last 12 months: No Does any household member use tobacco: No Alcohol Use: None Do you use any recreational Drugs:: No Lives With: Family Lives Where: Home infectious screening In the last 2 months have you had wt loss of >10#?: NO Have you had fever, night sweats or hemotysis?: No Have you traveled outside the country in the last 6 months?: No Isolation: Standard ROS Review of Systems Constitutional: No Symptoms Reported Unable to Obtain Due To: Altered mental status PE Vital Signs Vitals: Temperature 98.6 F Pulse Rate [Left Brachial] 96 Pulse Rate 78 Respiratory Rate 20 Blood Pressure [Left Arm] 170/90 Blood Pressure [Right Arm] 180/104 Blood Pressure 220/102 O2 Sat by Pulse Oximetry 100 General Limitations: Altered Mental Status General Appearance: Anxious and In Distress Head Head Exam: Normal Inspection, Atraumatic and Normocephalic Eyes Eye exam: Normal Appearance, PERRL and EOMI ENT ENT Exam: Normal Exam Neck Neck Exam: Normal Inspection and Full ROM Respiratory Respiratory Exam: Normal Lung Sounds Bilat Cardiovascular Cardiovascular Exam: Regular Rate and Tachycardia Abdominal Exam Abdominal Exam: Normal Inspection, Normal Bowel Sounds and Soft Extremities Extremities Exam: Normal Inspection and Full ROM Neurologic Neurological Exam: Alert and Other MDM Additional Information Obtained Additional Information Obtained From: Old Records and Family COURSE Treatment Treatment: Rocephin/ BP meds/ Pt was observed to several hours and workup relieved no abnormalities except in UA and possible ability of substance not tested in UDS. The patient is still not at baseline will admit for further workup Reevaluation 1st: Unchanged (22:00) 2nd: Unchanged (00:40) 3rd: Unchanged Consultation Consultation Comments: Dr. Foster accepted admission Education/Counseling Education/Counseling: Patient, Family, Education and Counseling Educated On: Treatment, Diagnosis, Prognosis and Needs for Follow Up ROR Labs Reviewed Result Diagrams: 04/01/19 03:50 04/01/19 03:50 Laboratory: WBC 9.3 X10^3/uL (3.6-10.0) 04/01/19 03:50 RBC 4.74 X10^6/uL (3.5-5.4) 04/01/19 03:50 Hgb 14.7 g/dL (12.0-16.0) 04/01/19 03:50 Hct 43.3 % (36.0-47.0) 04/01/19 03:50 MCV 91.4 fL (80.0-100.0) 04/01/19 03:50 MCH 31.0 pg (27.0-34.0) 04/01/19 03:50 MCHC 33.9 g/dL (33.0-35.0) 04/01/19 03:50 RDW 14.6 % (11.6-16.5) 04/01/19 03:50 Plt Count 371 X10^3/uL (150.0-450.0) 04/01/19 03:50 MPV 6.8 fL (7.4-11.0) L 04/01/19 03:50 Neut % (Auto) 53.3 % (42.0-75.0) 04/01/19 03:50 Lymph % (Auto) 34.5 % (21.0-51.0) 04/01/19 03:50 [place] % (Auto) 11.4 % (0.0-13.0) 04/01/19 03:50 Eos % (Auto) 0.4 % (0.9-2.9) L 04/01/19 03:50 Baso % (Auto) 0.4 % (0.2-1.0) 04/01/19 03:50 Neut # (Auto) 5.0 x10^3/uL (2.2-4.8) H 04/01/19 03:50 Lymph # (Auto) 3.2 X10^3/uL (1.3-2.9) H 04/01/19 03:50 [place] # (Auto) 1.1 x10^3/uL (0.3-0.8) H 04/01/19 03:50 Eos # (Auto) 0.0 x10^3/uL (0.0-0.2) 04/01/19 03:50 Baso # (Auto) 0.0 X10^3/uL (0.0-0.1) 04/01/19 03:50 Absolute Nucleated RBC 0.1 /100WBC 04/01/19 03:50 Sample Site Rrad 03/31/19 01:04 ABG pH 7.400 (7.35-7.45) 03/31/19 01:04 ABG pCO2 38.0 mmHg (35.0-45.0) 03/31/19 01:04 ABG pO2 74.0 mmHg (80.0-100.0) L 03/31/19 01:04 ABG HCO3 23.5 mmol/L (22-26) 03/31/19 01:04 ABG O2 Saturation 95.0 % (90-100) 03/31/19 01:04 ABG Base Excess -1.1 mmol/L (-2.0-2.0) 03/31/19 01:04 [place] Test Pos 03/31/19 01:04 A-a Gradient 78.0 mmHg 03/31/19 01:04 FiO2 28.0 03/31/19 01:04 Blood Gas Comments Carol abg well-mtf 03/31/19 01:04 Sodium 142 mmol/L (136-145) 04/01/19 03:50 Corrected Sodium 142 mmol/L (136-145) 04/01/19 03:50 Potassium 3.6 mmol/L (3.5-5.1) 04/01/19 03:50 Chloride 102 mmol/L (98-107) 04/01/19 03:50 Carbon Dioxide 24.2 mmol/L (21-32) 04/01/19 03:50 BUN 14 mg/dL (7-18) 04/01/19 03:50 Creatinine 1.06 mg/dL (0.55-1.02) H 04/01/19 03:50 Est GFR (MDRD) Af Amer > 60 (>60) 04/01/19 03:50 Est GFR (MDRD) Non-Af 58 (>60) L 04/01/19 03:50 Glucose 116 mg/dL (65-99) H 04/01/19 03:50 Lactic Acid 1.8 mmol/L (0.4-2.0) 03/30/19 22:40 Calcium 9.9 mg/dL (8.5-10.1) 04/01/19 03:50 Corrected Calcium TNP 04/01/19 03:50 Total Bilirubin 0.70 mg/dL (0.2-1.0) 04/01/19 03:50 AST 30 Units/L (15-37) 04/01/19 03:50 ALT 35 Units/L (12-78) 04/01/19 03:50 Alkaline Phosphatase 78 Units/L (46-116) 04/01/19 03:50 Ammonia < 10 umol/L (11-32) L 03/31/19 00:29 Creatine Kinase 91 Units/L (26-192) 03/30/19 22:40 CK-MB (CK-2) 1.8 ng/mL (0-4.0) 03/30/19 22:40 CK/CKMB % Calc 2.0 % (<4) 03/30/19 22:40 Troponin I < 0.02 ng/mL (0-1.5) 03/30/19 22:40 Total Protein 8.1 g/dL (6.4-8.2) 04/01/19 03:50 Albumin 4.4 g/dL (3.4-5.0) 04/01/19 03:50 Globulin 3.7 g/dL (2.5-4.5) 04/01/19 03:50 Albumin/Globulin Ratio 1.2 Ratio (1.1-2.1) 04/01/19 03:50 Specimen Type Clean catch urine 03/30/19 04:36 Urine Color Yellow (YELLOW) 03/30/19 04:36 Urine Appearance Clear (CLEAR) 03/30/19 04:36 Urine pH 5.0 (5.0 - 8.0) 03/30/19 04:36 Ur Specific [place] 1.025 (1.000-1.030) 03/30/19 04:36 Urine Protein 3+ (NEGATIVE) 03/30/19 04:36 Urine Glucose (UA) Negative (NEGATIVE) 03/30/19 04:36 Urine Ketones 3+ (NEGATIVE) 03/30/19 04:36 Urine Occult Blood 2+ (NEGATIVE) 03/30/19 04:36 Urine Nitrite Negative (NEGATIVE) 03/30/19 04:36 Urine Bilirubin Negative (NEGATIVE) 03/30/19 04:36 Urine Urobilinogen Normal (NORMAL) 03/30/19 04:36 Ur Leukocyte Esterase 1+ (NEGATIVE) 03/30/19 04:36 Urine RBC 0-2 /HPF (0-3) 03/30/19 04:36 Urine WBC 3-5 /HPF (0-5) 03/30/19 04:36 Ur Squamous Epith Cells Moderate /HPF (NEGATIVE) 03/30/19 04:36 Calcium Oxalate Crystal Few /HPF (NEGATIVE) 03/30/19 04:36 Urine Bacteria Trace /HPF (NEGATIVE) 03/30/19 04:36 Urine Mucus Moderate /HPF (NEGATIVE) 03/30/19 04:36 Ur Culture Indicated? No/not indicated 03/30/19 04:36 Salicylates < 2.8 mg/dL (2.8-20) L 03/30/19 22:40 Urine Opiates Screen Positive (NEG=<300) A 03/30/19 04:36 Urine Methadone Screen Negative (NEG=<300) 03/30/19 04:36 Acetaminophen 0.0 ug/mL (10-30) L 03/30/19 22:40 Ur Barbiturates Screen Negative (NEG=<200) 03/30/19 04:36 Ur Phencyclidine Scrn Negative (NEG=<25) 03/30/19 04:36 Ur Amphetamines Screen Negative (NEG=<1000) 03/30/19 04:36 U Benzodiazepines Scrn Negative (NEG=<200) 03/30/19 04:36 Urine Cocaine Screen Negative (NEG=<300) 03/30/19 04:36 U Marijuana (THC) Screen Negative (NEG=<50) 09/08/19 04:36 Opioid Opioid Risk Tool Total: 0 Total Score Risk Category: Low Risk Copyright: Sean JACQUES predicting aberrant behaviors Diagnosis Discharge Problem: Acute encephalopathy Narrative Support Text: Admitted for further workup. Accepted by Dr. Foster
[2019-03-30 23:12] LABS: LACTIC ACID 1.8 mmol/L (0.4-2.0)
[2019-03-30 23:20] LABS: SALICYLATE < 2.8 mg/dL (2.8-20)
[2019-03-30 23:24] LABS: CREATINE KINASE 91 Units/L (26-192); CREATINE KINASE MB 1.8 ng/mL (0-4.0); TROPONIN I < 0.02 ng/mL (0-1.5)
[2019-03-30] MEDS ORDERED: ATIVAN INJ 2 MG VIAL IM ONE (23:37)
[2019-03-30] MEDS ORDERED: ATIVAN INJ 2 MG VIAL ONE (23:39)
[2019-03-31 00:26] LABS: BASOPHILS # (AUTO) 0.1 X10^3/uL (0.0-0.1); BASOPHILS % (AUTO) 0.5 % (0.2-1.0); EOSINOPHILS % (AUTO) 0.2 % (0.9-2.9); HEMATOCRIT 47.1 % (36.0-47.0); HEMOGLOBIN 15.8 g/dL (12.0-16.0); LYMPHOCYTES # (AUTO) 3.9 X10^3/uL (1.3-2.9); MEAN CORPUSCULAR HEMOGLOBIN 30.7 pg (27.0-34.0); MEAN CORPUSCULAR HGB CONC 33.5 g/dL (33.0-35.0); MEAN CORPUSCULAR VOLUME 91.6 fL (80.0-100.0); MEAN PLATELET VOLUME 6.8 fL (7.4-11.0); MONOCYTES # (AUTO) 1.1 x10^3/uL (0.3-0.8); MONOCYTES % (AUTO) 9.3 % (0.0-13.0); PLATELET COUNT 399 X10^3/uL (150.0-450.0); RED BLOOD COUNT 5.14 X10^6/uL (3.5-5.4); RED CELL DISTRIBUTION WIDTH 14.7 % (11.6-16.5)
[2019-03-31 00:37] LABS: ALANINE AMINOTRANSFERASE 24 Units/L (12-78); ALBUMIN 4.6 g/dL (3.4-5.0); ALKALINE PHOSPHATASE 86 Units/L (46-116); ASPARTATE AMINO TRANSFERASE 17 Units/L (15-37); BLOOD UREA NITROGEN 23 mg/dL (7-18); CALCIUM 10.2 mg/dL (8.5-10.1); CARBON DIOXIDE 20.1 mmol/L (21-32); CHLORIDE 103 mmol/L (98-107); COR NA(FOR HYPERGLY) 142 mmol/L (136-145); CREATININE 1.26 mg/dL (0.55-1.02); SODIUM 141 mmol/L (136-145); TOTAL PROTEIN 8.4 g/dL (6.4-8.2); eGFR NON BLACK RACES 48 (>60)
[2019-03-31 00:51] LABS: AMMONIA < 10 umol/L (11-32)
[2019-03-31 01:09] LABS: ABG BASE EXCESS -1.1 mmol/L (-2.0-2.0); ABG HCO3 23.5 mmol/L (22-26)
[2019-03-31 01:10] LABS: ABG ALLEN TEST POS
[2019-03-31] MEDS ORDERED: NS 1000 ML 1,000 ML ONE ×2 (01:21→03:30)
[2019-03-31] MEDS ORDERED: NS 1000 ML 1,000 ML IV ONE ×2 (01:42→03:30)
--- NOTE | 2019-03-31 02:18 | RAD ---
Chest AP portable Indication: Epigastric pain and confusion Comparison: Is 01/17/2018 Findings: There is no pneumothorax. There is cardiomegaly. Monitoring leads obscure minimal detail. Impression: Prominent heart size without other acute chest process. Reported By:
[2019-03-31] MEDS ORDERED: ROCEPHIN VIAL 1 GRAM IVP ONE (02:35)
[2019-03-31] MEDS ORDERED: ROCEPHIN VIAL 1 GRAM ONE (02:37)
[2019-03-31] MEDS ORDERED: LABETALOL HCL IVP ONE (02:38)
[2019-03-31] MEDS ORDERED: NORMODYNE INJ 100 MG VIAL ONE (02:38)
--- NOTE | 2019-03-31 04:10 | CT ---
CT head without contrast Indication: Altered mental status Technique: Axial images from the skull base to the vertex without contrast. Coronal and sagittal reformats provided. Comparison: 01/17/2018 Findings: There is no acute intracranial hemorrhage, mass or mass effect. No extra-axial fluid collection or abnormal area of hypoattenuation to suggest acute infarcts seen. Ventricles and sulci are normal. There is no osseous lesion. Paranasal sinuses and mastoid air cells are clear Impression: No acute intracranial hemorrhage Reported By:
[2019-03-31 04:43] LABS: BILIRUBIN,URINE NEGATIVE (NEGATIVE); BLOOD/HEMOGLOBIN,URINE 2+ (NEGATIVE); GLUCOSE, URINE NEGATIVE (NEGATIVE); KETONES,URINE 3+ (NEGATIVE); LEUKOCYTE ESTERASE ,URINE 1+ (NEGATIVE); NITRITES,URINE NEGATIVE (NEGATIVE); PROTEIN,URINE 3+ (NEGATIVE); UROBILINOGEN,URINE NORMAL (NORMAL)
[2019-03-31 04:47] LABS: APPEARANCE,URINE CLEAR (CLEAR); COLOR,URINE YELLOW (YELLOW)
[2019-03-31 04:51] LABS: BACTERIA,URINE TRACE /HPF (NEGATIVE); CALCIUM OXALATE CRYSTALS,UR FEW /HPF (NEGATIVE); RBC,URINE 0-2 /HPF (0-3); SQUAMOUS EPITHELIAL CELL,UR MODERATE /HPF (NEGATIVE)
[2019-03-31 04:52] LABS: MUCUS,URINE MODERATE /HPF (NEGATIVE)
[2019-03-31] MEDS ORDERED: ZESTRIL TAB 10 MG PO SCH (09:00)
[2019-03-31] MEDS ORDERED: HYDROCHLOROTHIAZIDE 25 MG TAB PO SCH (09:00)
[2019-03-31] MEDS ORDERED: PriLOSEC PO SCH (09:00)
[2019-03-31] MEDS ORDERED: ZANAFLEX PO PRN (10:21)
[2019-03-31] MEDS: ASPIRIN PO SCH (10:44)
[2019-03-31] MEDS: SYNTHROID 25 mcg TAB PO SCH (10:45)
[2019-03-31] MEDS: MAXZIDE 37.5/25 MG PO SCH (10:45)
[2019-03-31] MEDS: TOPROL XL PO SCH (10:45)
[2019-03-31 11:49] VITALS: BMI 43.0
[2019-03-31] MEDS ORDERED: ATARAX TAB 25 MG PO PRN (12:08)
--- NOTE | 2019-03-31 12:48 | DR.H&P ---
H&P - History & Physical for Day of: H&P Date: 03/31/19 - Chief Complaint Chief Complaint: AMS, HTN - History of Present Illness History of Present Illness: IS A 48 YEAR OLD PATIENT OF OURS WHO PRESENTED TO THE ER WITH COMPLAINTS OF DIAPHORESIS, EPIGASTRIC PAIN, CONFUSION, AND HIGH BLOOD PRESSURE. SYMPTOMS REPORTEDLY STARTED AROUND LUNCH ON 03/30/19. PATIENTS SPOUSE REPORTS THAT HE BELIEVES SHE TOOK TOO MUCH OF HER PAIN MEDICATIONS AND MUSCLE RELAXERS. HE REPORTS THAT SHE HAS HAD SIGNIFICANT BACK AND HIP PAIN FOR SEVERAL DAYS. ON ARRIVAL, PATIENT WAS NOTED TO BE ANXIOUS AND AGITATED. ON ARRIVAL TO THE ER, VITALS WERE 97.8-118-26-97%-183/106. LABS WERE OBTAINED. ABNORMAL LAB VALUES INCLUDE THE FOLLOWING: WBC 12.0, HCT 47.1, CARBON DIOXIDE 20.1, BUN 23, CREATININE 1.26, GLUCOSE 160, CALCIUM 10.2, AMMONIA <10, TOTAL PROTEIN 8.4. CARDIAC ENZYMES WERE WITHIN NORMAL LIMITS. A URINALYSIS WAS OBTAINED AND REVEALED: WBC 3-5, RBC 0-2, LEUKOCYTES 1+, BACTERIA TRACE, OCCULT BLOOD 2+. AN ABG WAS OBTAINED AND REVEALED: PH 7.400, PC02 38.0, P02 74.0, HC03 23.5, 02 SATURATION 95.0, BAXE EXCESS -1.1. TOXICOLOGY WAS POSITIVE FOR OPIATES. BLOOD CULTURES WERE OBTAINED. A CHEST XRAY WAS OBTAINED AND REVEALED: PROMINENT HEART SIZE WITHOUT OTHER ACUTE CHEST PROCESS. A BRAIN CT WAS OBTAINED AND REVEALED: There is no acute intracranial hemorrhage, mass or mass effect. No extra-axial fluid collection or abnormal area of hypoattenuation to suggest acute infarcts seen. Ventricles and sulci are normal. There is no osseous lesion. Paranasal sinuses and mastoid air cells are clear. AN EKG REVEALED: SINUS TACHYCARDIA WITH HR 112. SHE WAS GIVEN A NORMAL SALINE BOLUS X 2, LABETALOL 20MG IV X 1, ROCEPHIN 1G IV X 1, ASPIRIN 325MG PO X 1, AND ATIVAN 2MG IM X 1 DOSE. SHE WAS ADMITTED FOR FURTHER EVALUATION AND TREATMENT OF ALTERED MENTAL STATUS AND HYPERTENSION. SHE WAS STARTED ON NORVASC 5MG PO HS, DYAZIDE 1 TABLET PO DAILY, AND HER HOME MEDICATIONS OF ZANAFLEX, CRESTOR, SINGULAIR, TOPROL, SYNTHROID, HYDROXYZINE, NORCO, AND CYMBALTA WERE RESUMED. OTHERWISE, WE PLAN TO FOLLOW UP WITH AM LABS AND CONTINUE TO MONITOR. - Past Medical History Past Medical History: Hypertension, Dyslipidemia, Depression, Hypothyroidism - Past Surgical History Surgical History: Hysterectomy, Other - Family History Family Medical History: Diabetes Mellitus, Heart Failure, Hypertension - Social History Does patient currently use any type of tobacco product: Yes (VAPE) Have you used tobacco products in the last 12 months: Yes Type of Tobacco Use: VAPE Does any household member use tobacco: No Alcohol Use: None Drug Use: Prescription Drugs - Medications Home Medications: No Known Drug Allergies Allergy (Verified 01/17/18 20:09) CONTINUE taking the following medications celecoxib [Celebrex] 50 mg PO BID 03/30/19 [History] hydrocodone-acetaminophen 10 - 325 mg PO TID PRN 03/30/19 [History] metoprolol succinate 25 mg PO HS 03/30/19 [History] rosuvastatin 10 mg PO HS 03/30/19 [History] hydroxyzine HCl 25 mg PO .4-6HH 03/31/19 [History] - Review of Systems Constitutional: See HPI, Weakness, Other (DIAPHORESIS ) Eyes: No Symptoms Reported ENT: No Symptoms Reported Respiratory: No Symptoms Reported Cardiovascular: No Symptoms Reported Gastrointestinal: Abdominal Pain Genitourinary: No Symptoms Reported Musculoskeletal: See HPI, Back Pain, Other (HIP PAIN ) Skin: No Symptoms Reported Neurological: See HPI, Weakness, Confusion - Physical Exam Vital Signs: Temperature 98.7 F Pulse Rate [Left Brachial] 118 Pulse Rate 78 Respiratory Rate 20 Blood Pressure [Left Arm] 187/87 Blood Pressure [Right Arm] 197/91 Blood Pressure 220/102 O2 Sat by Pulse Oximetry 100 Oriented: Person Eyes: Normal Ear: Normal Nose: Normal Throat: Normal Respiratory: Diminished Throughout Cardiovascular: Tachycardia. negative: S3, S4, Murmur : Normal Auscultation: Bowel Sounds: Normal Palpation: Normal Tenderness: Epigastric. negative: Rebound, Guarding, Rigidity Skin: Diaphoresis Musculoskeletal: Right, Left, Hip, Back:Lumbar, Tender Psychiatric: Anxiety, Agitation Mood Description: Anxious Affect: Anxious Speech Pattern: Inappropriate - Assessment/Plan (1) Hypertension Qualifiers: Hypertension type: essential hypertension Qualified Code(s): I10 - Essential (primary) hypertension Status: Acute Plan: ADMIT, NORVASC 5MG PO DAILY, DYAZIDE 1 TABLET DAILY, METOPROLOL 25MG PO DAILY, CONTINUE TO MONITOR (2) Altered mental status Qualifiers: Altered mental status type: transient alteration of awareness Qualified Code(s): R40.4 - Transient alteration of awareness Status: Acute - Allergies Allergies/Adverse Reactions: Allergies Allergy/AdvReac Type Severity Reaction Status Date / Time No Known Drug Allergies Allergy Verified 01/17/18 20:09
[2019-03-31] MEDS: NORCO 10/325 TAB PO PRN (16:19)
[2019-03-31] MEDS: CRESTOR TAB 10 MG PO SCH (20:48)
[2019-03-31] MEDS: NORVASC TAB 5 MG PO SCH (20:48)
[2019-03-31] MEDS: CYMBALTA PO SCH (20:48)
[2019-03-31] MEDS: SINGULAIR TAB 10 MG PO SCH (20:49)
[2019-03-31] MEDS: ZANAFLEX PO SCH (20:49)
[2019-04-01] MEDS: NORCO 10/325 TAB PO PRN ×3 (00:18→20:14)
[2019-04-01 04:54] LABS: BASOPHILS % (AUTO) 0.4 % (0.2-1.0); EOSINOPHILS % (AUTO) 0.4 % (0.9-2.9); HEMATOCRIT 43.3 % (36.0-47.0); HEMOGLOBIN 14.7 g/dL (12.0-16.0); LYMPHOCYTES # (AUTO) 3.2 X10^3/uL (1.3-2.9); LYMPHOCYTES % (AUTO) 34.5 % (21.0-51.0); MEAN CORPUSCULAR HGB CONC 33.9 g/dL (33.0-35.0); MEAN CORPUSCULAR VOLUME 91.4 fL (80.0-100.0); MEAN PLATELET VOLUME 6.8 fL (7.4-11.0); MONOCYTES # (AUTO) 1.1 x10^3/uL (0.3-0.8); MONOCYTES % (AUTO) 11.4 % (0.0-13.0); NEUTROPHILS % (AUTO) 53.3 % (42.0-75.0); PLATELET COUNT 371 X10^3/uL (150.0-450.0); RED BLOOD COUNT 4.74 X10^6/uL (3.5-5.4); RED CELL DISTRIBUTION WIDTH 14.6 % (11.6-16.5); WHITE BLOOD COUNT 9.3 X10^3/uL (3.6-10.0)
[2019-04-01 05:11] LABS: ALANINE AMINOTRANSFERASE 35 Units/L (12-78); ALBUMIN 4.4 g/dL (3.4-5.0); ALKALINE PHOSPHATASE 78 Units/L (46-116); ASPARTATE AMINO TRANSFERASE 30 Units/L (15-37); BLOOD UREA NITROGEN 14 mg/dL (7-18); CALCIUM 9.9 mg/dL (8.5-10.1); CARBON DIOXIDE 24.2 mmol/L (21-32); CHLORIDE 102 mmol/L (98-107); COR NA(FOR HYPERGLY) 142 mmol/L (136-145); CREATININE 1.06 mg/dL (0.55-1.02); SODIUM 142 mmol/L (136-145); TOTAL PROTEIN 8.1 g/dL (6.4-8.2); eGFR NON BLACK RACES 58 (>60)
[2019-04-01] MEDS: TOPROL XL PO SCH ×2 (09:00→10:27)
[2019-04-01] MEDS: SYNTHROID 25 mcg TAB PO SCH (09:00)
[2019-04-01] MEDS: ASPIRIN PO SCH (09:00)
[2019-04-01] MEDS: MAXZIDE 37.5/25 MG PO SCH (09:00)
[2019-04-01] MEDS: CRESTOR TAB 10 MG PO SCH (20:12)
[2019-04-01] MEDS: NORVASC TAB 5 MG PO SCH (20:12)
[2019-04-01] MEDS: CYMBALTA PO SCH (20:13)
[2019-04-01] MEDS: SINGULAIR TAB 10 MG PO SCH (20:13)
[2019-04-01] MEDS: ZANAFLEX PO SCH (20:13)
[2019-04-02] MEDS: NORCO 10/325 TAB PO PRN (02:33)
[2019-04-02 06:16] LABS: BASOPHILS % (AUTO) 0.4 % (0.2-1.0); EOSINOPHILS % (AUTO) 0.4 % (0.9-2.9); HEMATOCRIT 46.1 % (36.0-47.0); HEMOGLOBIN 15.7 g/dL (12.0-16.0); LYMPHOCYTES # (AUTO) 3.3 X10^3/uL (1.3-2.9); LYMPHOCYTES % (AUTO) 40.5 % (21.0-51.0); MEAN CORPUSCULAR HEMOGLOBIN 31.2 pg (27.0-34.0); MEAN CORPUSCULAR HGB CONC 34.1 g/dL (33.0-35.0); MEAN CORPUSCULAR VOLUME 91.5 fL (80.0-100.0); MEAN PLATELET VOLUME 6.8 fL (7.4-11.0); MONOCYTES # (AUTO) 0.9 x10^3/uL (0.3-0.8); MONOCYTES % (AUTO) 10.6 % (0.0-13.0); NEUTROPHILS # (AUTO) 3.9 x10^3/uL (2.2-4.8); NEUTROPHILS % (AUTO) 48.1 % (42.0-75.0); PLATELET COUNT 387 X10^3/uL (150.0-450.0); RED BLOOD COUNT 5.04 X10^6/uL (3.5-5.4); RED CELL DISTRIBUTION WIDTH 14.7 % (11.6-16.5); WHITE BLOOD COUNT 8.2 X10^3/uL (3.6-10.0)
[2019-04-02 06:55] LABS: ALANINE AMINOTRANSFERASE 37 Units/L (12-78); ALBUMIN 4.6 g/dL (3.4-5.0); ALKALINE PHOSPHATASE 81 Units/L (46-116); ASPARTATE AMINO TRANSFERASE 24 Units/L (15-37); BLOOD UREA NITROGEN 15 mg/dL (7-18); CALCIUM 10.1 mg/dL (8.5-10.1); CHLORIDE 99 mmol/L (98-107); COR NA(FOR HYPERGLY) 141 mmol/L (136-145); CREATININE 1.24 mg/dL (0.55-1.02); SODIUM 141 mmol/L (136-145); TOTAL PROTEIN 8.5 g/dL (6.4-8.2); eGFR NON BLACK RACES 49 (>60)
[2019-04-02] MEDS: MAXZIDE 37.5/25 MG PO SCH (08:19)
[2019-04-02] MEDS: TOPROL XL PO SCH (08:19)
[2019-04-02] MEDS: SYNTHROID 25 mcg TAB PO SCH (08:19)
[2019-04-02] MEDS: ASPIRIN PO SCH (08:19)
[2019-04-02 09:34] VITALS: BP 169/114
== END 2019-04-02 11:40 | disposition home or self-care (01) ==
LOC: ICU 22:05 → ER 22:05 → ICU 03-31 08:14 → MED/SURG 04-01 13:40
PROVIDERS: ADMIT Internal Medicine; ATTEND Internal Medicine
DX: R94.31 Abnormal electrocardiogram [ECG] [EKG]; F11.90 Opioid use, unspecified, uncomplicated; I10 Essential (primary) hypertension; F32.89 Other specified depressive episodes; R10.13 Epigastric pain; E78.2 Mixed hyperlipidemia; Z79.899 Other long term (current) drug therapy; R40.4 Transient alteration of awareness; E03.8 Other specified hypothyroidism
CPT/HCPCS: 36415; 36600; 70450; 71010; 71045; 80053; 80307; 81001; 82140; 82550; 82553; 82803; 83605; 84484; 85025; 87040; 93005; 96365; 96367; 96372; 96374; 96375; 99284; A4222; G0378; G0434; G6038; G6039; J0696; J2060; J3490; J7030